=== PATIENT | male | born 1995 | race Caucasian/White ===

== ENCOUNTER 2016-03-23 07:53 | Day surgery (SDC) | payer OTHER ==
[2016-03-23] MEDS ORDERED: ONDANSETRON HCL INJ/PF 4 MG/2 ML SDV ONE (08:52)
[2016-03-23] MEDS ORDERED: FENTANYL CITRATE INJ/PF 250 MCG/5 ML AMPULE ONE (08:52)
[2016-03-23] MEDS ORDERED: MIDAZOLAM 2 MG/2 ML INJ ONE (08:52)
[2016-03-23] MEDS ORDERED: DEXAMETHASONE SOD PHOS INJ 10 MG/1 ML VIAL ONE (08:52)
[2016-03-23] MEDS ORDERED: PROPOFOL INJ 200 MG/20 ML VIAL IV ONE (08:52)
[2016-03-23] MEDS ORDERED: SUCCINYLCHOLINE CHLORIDE INJ 200 MG/10 ML VIAL ONE (08:53)
[2016-03-23] MEDS ORDERED: OXYCODONE-ACETAMINOPHEN 5-325 MG TABLET ONE (09:48)
--- NOTE | 2016-03-23 09:53 | [facility] OPERATIVE REPORT E ---
[facility] Operative Report NAME: JUSTA JONES AGE: 20Y DATE OF SURGERY: 03/23/2016 ROOM: PREOPERATIVE DIAGNOSIS: RECURRENT TONSILLITIS AND PERITONSILLAR ABSCESSES. POSTOPERATIVE DIAGNOSIS: RECURRENT TONSILLITIS AND PERITONSILLAR ABSCESSES. OPERATION: Bilateral tonsillectomy. SURGEON: RORY FOWLER M.D. ANESTHESIA: General endotracheal. ESTIMATED BLOOD LOSS: 25 mL. COMPLICATIONS: None. FINDINGS: Endophytic tonsils 2+ with bilateral abscess pockets without active infection or purulence. INDICATIONS AND PROCEDURE: A 20-year-old male with recurrent tonsillitis over the last 4 years with 2 episodes of peritonsillar abscesses, necessitating drainage and 2 other significant episodes that were likely peritonsillar cellulitis. PROCEDURE IN DETAIL: The patient was met in the preoperative holding area. All questions were answered and consent was verified. The patient was then brought back to the room and placed supine on the operating table and general endotracheal anesthesia was induced without difficulty. The table was turned and he was placed in slight extension. The eyes were protected with towel head drape and a preoperative time-out was performed. A Huma-Boyd mouth gag was inserted and opened to visualize the oropharynx and suspended from the Craig stand. The left tonsil was grasped and dissected with electrocautery from the peritonsillar plane. The right tonsil was similarly dissected. Hemostasis was achieved as needed with suction electrocautery and verified after irrigation and a brief period of desuspension from the mouth gag. The mouth gag was then removed and he was turned to the Anesthesia team for reversal and extubation. The patient tolerated the procedure well. DICTATING PHYSICIAN: RORY FOWLER M.D. [id number] Y#: [id number] ID: [id number] JOB#: [id number] ACCT: [id number] cc:RORY FOWLER M.D. >
[2016-03-23] MEDS ORDERED: LIDOCAINE 1% INJ-PF (10 MG/ML) 30 ML SDV ONE (11:18)
== END 2016-03-23 10:45 | disposition home or self-care (01) ==
LOC: SC 07:53
PROVIDERS: ATTEND Otolaryngology
PROC: 0CTPXZZ Resection of Tonsils, External Approach (ICD-10-PCS; principal; 2016-03-23 09:00)
DX: J35.1 Hypertrophy of tonsils (principal); J36 Peritonsillar abscess; F17.210 Nicotine dependence, cigarettes, uncomplicated
CPT/HCPCS: 88304 ×2; 42826; J2250; J3010; J3490; J0330; J2405; J2704; J1100; 170